=== PATIENT | male | born 1990 | race Caucasian/White ===

== ENCOUNTER 2017-10-05 17:45 | Emergency (ER) | payer OTHER | END 2017-10-05 18:13 | disposition home or self-care (01) | LOC: FTE 17:45 | DX: Z76.0 Encounter for issue of repeat prescription (principal); G40.909 Epilepsy, unspecified, not intractable, without status epilepticus; F17.210 Nicotine dependence, cigarettes, uncomplicated | CPT/HCPCS: 99281; Z7502 ==